=== PATIENT | female | born 1975 | race African-American/Black ===

== ENCOUNTER 2021-05-02 15:42 | Emergency (ER) | payer MEDICARE, MEDICAID ==
[~2021-05-02] VITALS: Ht 157.5 cm; Wt 70.0 kg
[2021-05-02 16:52] LABS: HEMATOCRIT 36.7 % (37.0-47.0); HEMOGLOBIN 11.7 g/dl (12.0-16.0); MEAN CORPUSCULAR HGB 32.6 pG CALC (26.0-32.0); MEAN CORPUSCULAR HGB CONC 31.9 g/dL CAL (32.0-36.0); NEUT# 1.05 thou/uL (2.00-7.15); RED BLOOD COUNT 3.59 mill/uL (4.20-5.60); RED CELL DISTRI WIDTH 13.3 % (11.5-15.5)
[2021-05-02 16:58] LABS: MEAN CELL VOLUME 102.2 fL CALC (80.0-100.0)
[2021-05-02 17:04] LABS: ALBUMIN 3.9 g/dL (3.2-5.0); ALKALINE PHOSPHATASE 56 u/l (38-126); BILIRUBIN, TOTAL 0.6 mg/dL (0.0-1.4); BUN 10 mg/dL (7-17); BUN/CREATININE RATIO 9 (12-20 (CALC)); CHLORIDE 108 mmol/l (95-108); CREATININE 1.1 mg/dL (0.5-1.0); GFR 54 ML/MIN (>=60 (CALC)); GFR FOR AFR.AMER. > 60 ML/MIN (>=60 (CALC)); POTASSIUM 3.7 mmol/l (3.5-5.1); SGOT/AST 25 u/l (14-36); SODIUM 142 mmol/l (137-146); TOTAL PROTEIN 7.7 g/dL (6.3-8.2)
[2021-05-02 17:09] LABS: ANION GAP 10 (6-22 (CALC)); CARBON DIOXIDE 28 mmol/l (22-30)
[2021-05-02 18:08] VITALS: BP 167/74
== END 2021-05-02 18:08 | disposition short-term general hospital (02) ==
LOC: ED 15:42
PROVIDERS: Family Medicine
DX: R00.1 Bradycardia, unspecified (principal); I10 Essential (primary) hypertension

== ENCOUNTER 2021-07-14 17:09 | Emergency (ER) | payer OTHER, MEDICARE, MEDICAID ==
[~2021-07-14] VITALS: Ht 157.5 cm; Wt 68.0 kg
[2021-07-14 18:19] LABS: URINE BILIRUBIN - DIPSTICK NEGATIVE (NEGATIVE); URINE BLOOD DIPSTICK NEGATIVE (NEGATIVE); URINE COLOR YELLOW; URINE GLUCOSE - DIPSTICK NEGATIVE (NEGATIVE); URINE KETONE NEGATIVE (NEGATIVE); URINE LEUK ESTERASE NEGATIVE (NEGATIVE); URINE NITRITE - DIPSTICK NEGATIVE (Negative); URINE PROTEIN - DIPSTICK NEGATIVE (NEG-TRACE); URINE SPECIFIC GRAVITY 1.015; URINE UROBILINOGEN - DIPSTICK 0.2 E.U./dL (0.2)
[2021-07-14] MEDS ORDERED: NAPROXEN500 MG PO (19:06)
[2021-07-14] MEDS ORDERED: CYCLOBENZAPRINE10 MG PO (19:06)
[2021-07-14 19:21] VITALS: BP 121/77
[2021-07-15] MEDS ORDERED: NAPROXEN500 MG PO (14:42)
[2021-07-15] MEDS ORDERED: CYCLOBENZAPRINE10 MG PO (14:42)
== END 2021-07-14 19:27 | disposition home or self-care (01) | DRG 552 ==
LOC: ED 17:09
PROVIDERS: Emergency Medicine
DX: M54.2 Cervicalgia (principal); M54.9 Dorsalgia, unspecified; V49.40XA Driver injured in collision with unspecified motor vehicles in traffic accident, initial encounter

== ENCOUNTER 2023-05-12 11:51 | Emergency (ER) | payer OTHER, MEDICARE, MEDICAID ==
[~2023-05-12] VITALS: Ht 157.5 cm; Wt 99.0 kg
[~2023-05-12 11:51] MED LIST: CYCLOBENZAPRINE10 MG PO; NAPROXEN500 MG PO
[2023-05-12 12:20] VITALS: BP 146/102
[2023-05-12 14:17] VITALS: BP 182/103
[2023-05-12 14:31] VITALS: BP 173/99
[2023-05-12 15:00] VITALS: BP 184/104
[2023-05-12 15:20] LABS: BASO% 0.1 % (0-3); HEMATOCRIT 42.4 % (37.0-47.0); HEMOGLOBIN 13.5 g/dl (12.0-16.0); IMMATURE GRANULOCYTES 0.3 % (0.0-5.0); LYMPH% 19.1 % (15-41); MEAN CELL VOLUME 104.7 fL CALC (80.0-100.0); MEAN CORPUSCULAR HGB 33.3 pG CALC (26.0-32.0); MEAN CORPUSCULAR HGB CONC 31.8 g/dL CAL (32.0-36.0); MONO% 7.5 % (2-13); NEUT# 6.27 thou/uL (2.00-7.15); RED BLOOD COUNT 4.05 mill/uL (4.20-5.60); RED CELL DISTRI WIDTH 13.3 % (11.5-15.5)
[2023-05-12 15:30] VITALS: BP 184/106
[2023-05-12 15:31] LABS: ALBUMIN 3.7 g/dL (3.2-5.0); ALKALINE PHOSPHATASE 78 u/l (38-126); BILIRUBIN, TOTAL 0.6 mg/dL (0.02-1.3); BUN 20 mg/dL (7-17); BUN/CREATININE RATIO 20 (12-20 (CALC)); CHLORIDE 110 mmol/l (95-108); GFR FOR AFR.AMER. > 60 ML/MIN (>=60 (CALC)); GFR OTHER RACES 60 ML/MIN (>=60 (CALC)); POTASSIUM 3.8 mmol/l (3.5-5.1); SGOT/AST 30 u/l (14-36); SODIUM 138 mmol/l (137-146)
[2023-05-12 15:32] LABS: ANION GAP 13 (6-22 (CALC)); CARBON DIOXIDE 19 mmol/l (22-30)
[2023-05-12] MEDS ORDERED: HYDROCO/APAP1 TA9 PO (15:35)
[2023-05-12 15:50] VITALS: BP 184/106
== END 2023-05-12 16:00 | disposition home or self-care (01) | DRG 552 ==
LOC: ED 11:51
PROVIDERS: Family Medicine
DX: M54.6 Pain in thoracic spine (principal); M54.50 Low back pain, unspecified; I10 Essential (primary) hypertension; V49.40XA Driver injured in collision with unspecified motor vehicles in traffic accident, initial encounter